=== PATIENT | male | born 1965 | race Hispanic/Latino ===

== ENCOUNTER 2020-07-10 08:08 | Day surgery (SDC) | payer MEDICARE ==
[2020-07-03 10:46] LABS: BASOPHILS % (AUTO) 0.2 % (0.0-5.0); EOSINOPHILS % (AUTO) 1.6 % (0.0-8.0); HEMATOCRIT 44.4 % (42-54); LYMPHOCYTES % (AUTO) 21.3 % (21.0-51.0); MEAN CORPUSCULAR HEMOGLOBIN 29.3 pg (27.0-33.0); MEAN CORPUSCULAR HGB CONC 31.8 g/dL (32.0-36.0); MEAN CORPUSCULAR VOLUME 92.3 fL (79-99); MONOCYTES % (AUTO) 6.4 % (3.0-13.0); NEUTROPHILS % (AUTO) 70.2 % (40.0-77.0); PLATELET COUNT (AUTO) 184 K/uL (130-400); RED BLOOD CELL COUNT(AUTO) 4.81 MIL/uL (4.50-6.20); RED CELL DISTRIBUTION WIDTH 14.1 % (11.0-15.5); WHITE BLOOD COUNT (AUTO) 9.3 K/uL (4.8-10.8)
[2020-07-03 11:02] LABS: CREATININE 1.1 mg/dL (0.5-1.5); POTASSIUM 4.1 mmol/L (3.5-5.1)
[2020-07-09 13:14] VITALS: BP 130/78
[2020-07-10] VITALS (18 sets, daily range): BP systolic 116–159; BP diastolic 69–97
[~2020-07-10] VITALS: Ht 157.5 cm; Wt 79.2 kg
[~2020-07-10 08:08] MED LIST: CALC0.5C11 PO; CALCIUM WITH VIT D PO; CEFAZOLIN SODIUM 1 GM VIAL IVP SCH; SODIUM CHLORIDE 0.9% 1000ML 1,000 ML IV SCH
[2020-07-10] MEDS ORDERED: LACTATED RINGERS 1000ML 1,000 ML IV ONE (09:12)
[2020-07-10] MEDS: CEFAZOLIN SODIUM 1 GM VIAL IVP SCH ×2 (09:31→11:00)
[2020-07-10] MEDS ORDERED: FENTANYL CITRATE PF 50 MCG/1 ML 2ML VIAL ONE (10:34)
[2020-07-10] MEDS ORDERED: PROPOFOL 10 MG/ML 20ML VIAL IV ONE (10:34)
[2020-07-10] MEDS ORDERED: LIDOCAINE PF 2% 5ML ABBOJECT ONE (10:34)
[2020-07-10] MEDS ORDERED: BUPIVACAINE/PF 0.5% 30ML VIAL ONE (11:13)
[2020-07-10] MEDS ORDERED: GLYCOPYRROLATE 1 MG/5 ML SYRINGE ONE (11:28)
[2020-07-10] MEDS ORDERED: NEOSTIGMINE 5MG/5ML SYR IV ONE (11:28)
[2020-07-10] MEDS ORDERED: KETOROLAC TROMETHAMINE 30MG/ML ONE (11:29)
[2020-07-10] MEDS ORDERED: ONDANSETRON HCL 4 MG/2 ML VIAL ONE (13:06)
== END 2020-07-10 14:22 | disposition home or self-care (01) ==
LOC: DAH 08:08
PROVIDERS: ATTEND Surgery
DX: K40.90 Unilateral inguinal hernia, without obstruction or gangrene, not specified as recurrent (principal); J45.909 Unspecified asthma, uncomplicated; Q90.9 Down syndrome, unspecified; Z20.822 Contact with and (suspected) exposure to COVID-19; Z79.899 Other long term (current) drug therapy
CPT/HCPCS: 36415; 49505; 80048; 85025; 94640; A4452; A4930 ×2; C1781; C9803; J0690; J1885; J2001; J2405; J2704; J2710; J3010; J3490 ×2; J7030; J7120; U0003

== ENCOUNTER → 2020-07-31 | Outpatient (CLI) | payer MEDICARE ==
[~2020-07-31] MED LIST changes: -CEFAZOLIN SODIUM 1 GM VIAL IVP SCH; +IOHEXOL-350 75 ML VIAL IV ONE; -SODIUM CHLORIDE 0.9% 1000ML 1,000 ML IV SCH
== END | disposition home or self-care (01) ==
LOC: RAH 13:59
PROVIDERS: ATTEND Surgery
DX: K40.91 Unilateral inguinal hernia, without obstruction or gangrene, recurrent (principal)
CPT/HCPCS: 72193; Q9967

== ENCOUNTER 2020-09-18 09:52 | Observation (INO) | payer MEDICARE ==
[2020-09-11 12:30] LABS: BASOPHILS % (AUTO) 0.3 % (0.0-5.0); EOSINOPHILS % (AUTO) 0.5 % (0.0-8.0); HEMATOCRIT 43.2 % (42-54); LYMPHOCYTES % (AUTO) 17.7 % (21.0-51.0); MEAN CORPUSCULAR HEMOGLOBIN 28.9 pg (27.0-33.0); MEAN CORPUSCULAR HGB CONC 31.3 g/dL (32.0-36.0); MEAN CORPUSCULAR VOLUME 92.5 fL (79-99); MONOCYTES % (AUTO) 6.2 % (3.0-13.0); NEUTROPHILS % (AUTO) 74.9 % (40.0-77.0); PLATELET COUNT (AUTO) 208 K/uL (130-400); RED BLOOD CELL COUNT(AUTO) 4.67 MIL/uL (4.50-6.20); RED CELL DISTRIBUTION WIDTH 14.5 % (11.0-15.5); WHITE BLOOD COUNT (AUTO) 10.9 K/uL (4.8-10.8)
[2020-09-11 12:45] LABS: CREATININE 1.1 mg/dL (0.5-1.5); POTASSIUM 3.8 mmol/L (3.5-5.1)
[2020-09-11 12:46] LABS: INR 0.99 (0.85-1.15); PROTHROMBIN TIME 10.8 SEC (9.6-11.6)
[2020-09-17 10:42] VITALS: BP 146/82
[2020-09-18] VITALS (26 sets, daily range): BP systolic 86–166; BP diastolic 69–90
[~2020-09-18] VITALS: Ht 132.1 cm; Wt 77.7 kg
[~2020-09-18 09:52] MED LIST changes: +CEFAZOLIN SODIUM 1 GM VIAL IVP SCH; -IOHEXOL-350 75 ML VIAL IV ONE
[2020-09-18] MEDS ORDERED: LACTATED RINGERS 1000ML 1,000 ML IV ONE (10:33)
[2020-09-18] MEDS ORDERED: CEFAZOLIN SODIUM 1 GM VIAL ONE (10:38)
[2020-09-18] MEDS: CEFAZOLIN SODIUM 1 GM VIAL ONE ×2 (10:39→15:42)
[2020-09-18] MEDS ORDERED: LIDOCAINE PF 100MG/5ML (2%) SYRINGE 5ML ONE (14:01)
[2020-09-18] MEDS ORDERED: SUCCINYLCHOLINE CHLORIDE 20 MG/ML 10 ML VIAL ONE (14:01)
[2020-09-18] MEDS ORDERED: MIDAZOLAM HCL 1 MG/ML 2ML VIAL ONE ×2 (14:01→19:19)
[2020-09-18] MEDS ORDERED: DEXAMETHASONE SOD PHOSPHATE 10MG/ML 1ML VIAL ONE (14:01)
[2020-09-18] MEDS ORDERED: FENTANYL CITRATE PF 50 MCG/1 ML 2ML VIAL ONE (14:02)
[2020-09-18] MEDS ORDERED: PROPOFOL 10 MG/ML 20ML VIAL IV ONE (14:02)
[2020-09-18] MEDS ORDERED: ONDANSETRON 4MG INJ ONE (14:02)
[2020-09-18] MEDS ORDERED: GLYCOPYRROLATE 1 MG/5 ML SYRINGE ONE (14:02)
[2020-09-18] MEDS ORDERED: NEOSTIGMINE 5MG/5ML SYR IV ONE (14:02)
[2020-09-18] MEDS ORDERED: ROCURONIUM 10MG/1ML SYR 10 MG/ML ML ONE (14:02)
[2020-09-18] MEDS ORDERED: BUPIVACAINE/PF 0.5% 30ML VIAL ONE (15:07)
[2020-09-18] MEDS ORDERED: SUGAMMADEX SODIUM 200 MG/2 ML VIAL IV ONE (18:21)
[2020-09-18] MEDS ORDERED: KETOROLAC 15MG/ML VIAL (15MG/ML) ONE ×2 (23:20→23:22)
[2020-09-19] MEDS ORDERED: IBUPROFEN 800 MG TAB PO PRN
[2020-09-19] MEDS ORDERED: KETOROLAC 30MG VIAL (30MG/ML) IV PRN
[2020-09-19] MEDS ORDERED: MORPHINE 4 MG SYG IV PRN
[2020-09-19] MEDS ORDERED: ONDANSETRON 4MG INJ IVP PRN
[2020-09-19 00:23] VITALS: BP 113/70
[2020-09-19 04:41] LABS: HEMATOCRIT 36.1 % (42-54); MEAN CORPUSCULAR HEMOGLOBIN 28.9 pg (27.0-33.0); MEAN CORPUSCULAR HGB CONC 31.6 g/dL (32.0-36.0); MEAN CORPUSCULAR VOLUME 91.6 fL (79-99); RED BLOOD CELL COUNT(AUTO) 3.94 MIL/uL (4.50-6.20); RED CELL DISTRIBUTION WIDTH 14.3 % (11.0-15.5); WHITE BLOOD COUNT (AUTO) 12.8 K/uL (4.8-10.8)
[2020-09-19 04:54] LABS: CREATININE 1.2 mg/dL (0.5-1.5); POTASSIUM 4.1 mmol/L (3.5-5.1)
[2020-09-19 05:34] VITALS: BP 120/70
[2020-09-19 08:08] VITALS: BP 122/64
[2020-09-19] MEDS ORDERED: CA 600MG+VIT D 400 UNIT TAB 1 TAB TABLET PO SCH (09:00)
[2020-09-19] MEDS ORDERED: CALCITRIOL 0.25 MCG CAP PO SCH (09:00)
[2020-09-19 11:02] VITALS: BP 124/66
== END 2020-09-19 15:29 | disposition home or self-care (01) ==
LOC: DAH 09:52 → DAHIP 09:53 → DAH 09:53 → 4AH 21:50
PROVIDERS: ADMIT Surgery; ATTEND Surgery
DX: K40.30 Unilateral inguinal hernia, with obstruction, without gangrene, not specified as recurrent (principal); Z20.822 Contact with and (suspected) exposure to COVID-19; J45.909 Unspecified asthma, uncomplicated; F17.210 Nicotine dependence, cigarettes, uncomplicated; Q90.9 Down syndrome, unspecified
CPT/HCPCS: 36415 ×2; 49650; 71045; 80048 ×2; 85025; 85027; 85610; 85730; 87635; 93005; 96360; 96361 ×3; A4215; A4221; A4222; A4223; A4344; A4600; A4663; A6260; C1781; C9803; G0168; G0378 ×26; J0330; J0690; J1100; J1885 ×2; J2001; J2250 ×2; J2405; J2704; J2710; J3010; J3490 ×2; J7030; J7120